=== PATIENT | male | born 1960 | race Caucasian/White ===

== ENCOUNTER → 2020-12-28 | Outpatient (CLI) | payer MEDICARE | END | disposition home or self-care (01) | LOC: CFH 10:20 | PROVIDERS: ATTEND Pathology Hematology | DX: C46.0 Kaposi's sarcoma of skin (principal); R22.42 Localized swelling, mass and lump, left lower limb ==

== ENCOUNTER 2021-04-11 15:33 | Emergency (ER) | payer MEDICARE ==
[~2021-04-11] VITALS: Ht 198.1 cm; Wt 130.0 kg
--- NOTE | 2021-04-11 15:49 | NUR ---
ASSUMED CARE OF PATIENT. PATIENT BIB [facility] FOR A WITNESSED SEIZURE. VS STABLE. PT HAS BEEN SEEN BY DR CANTU. [employer] CONSULTANT ON. NSR NOTED. PT IS A&OX4. CALL LIGHT IN PLACE. SEIZURE PADS ON BED. WILL CONTINUE TO MONITOR.
[2021-04-11] MEDS ORDERED: SODIUM CHLORIDE FLUSH 10ML SYR IVF ONE (16:00)
--- NOTE | 2021-04-11 16:02 | NUR ---
PT WENT TO CT
[2021-04-11 16:09] LABS: BASOPHILS % (AUTO) 0 % (0-1); EOSINOPHILS % (AUTO) 3 % (1-7); LYMPHOCYTES % (AUTO) 31 % (22-44); MEAN CORPUSCULAR HEMOGLOBIN 33.2 pg (27.5-34.5); MEAN CORPUSCULAR HGB CONC 34.5 g/dL (33.2-36.2); MEAN PLATELET VOLUME 6.9 fL (7.4-10.4); MONOCYTES % (AUTO) 9 % (2-9); NEUTROPHILS % (AUTO) 58 % (42-75); PLATELET COUNT 131 x10^3/uL (130-400); RED BLOOD COUNT 4.17 x10^6/uL (4.38-5.82); RED CELL DISTRIBUTION WIDTH 15.7 % (9.4-14.8)
[2021-04-11 16:12] LABS: MD NO
[2021-04-11 16:16] LABS: ALBUMIN 3.7 g/dL (3.4-5.0); ANION GAP 9 mmol/L (5-15); CALCIUM 8.5 mg/dL (8.5-10.1); CHLORIDE 107 mmol/L (98-107)
[2021-04-11 16:23] LABS: ALANINE AMINOTRANSFERASE 83 U/L (12-78); ALKALINE PHOSPHATASE 101 U/L (45-117); BILIRUBIN,TOTAL 0.9 mg/dL (0.2-1.0); CREATININE 1.04 mg/dL (0.7-1.3); TOTAL PROTEIN 6.6 g/dL (6.4-8.2); TROPONIN I < 0.015 ng/mL (0.000-0.045)
[2021-04-11] MEDS ORDERED: HYDROmorphone 1 MG/ML, 1ML INJ IV ONE (16:30)
[2021-04-11] MEDS ORDERED: HYDROmorphone 1 MG/ML, 1ML INJ ONE (16:35)
--- NOTE | 2021-04-11 16:49 | NUR ---
PT REPORTS [address] CANTU AWARE. PT MEDICATED. PT REQUESTING ICE FOR BACK. ICE PACKS GIVEN. VS STABLE. CALL LIGHT IN PLACE. WILL CONTINUE TO MONITOR.
[2021-04-11] MEDS ORDERED: PLEASE ENTER ALLERGIES MC SCH (17:00)
--- NOTE | 2021-04-11 17:17 | NUR ---
PT RESTING IN ROOM. VS STABLE. NO ACUTE DISTRESS NOTED. CALL LIGHT IN PLACE. WILL CONTINUE TO MONITOR.
--- NOTE | 2021-04-11 17:38 | NUR ---
PT REPORTS HE CAN'T GIVE A UA AT THIS TIME
--- NOTE | 2021-04-11 18:15 | NUR ---
DR CANTU IN ROOM UPDATING PATIENT
[2021-04-11 19:47] VITALS: BP 151/77
--- NOTE | 2021-04-11 19:48 | NUR ---
PT HAS A RIDE HOME FROM FAMILY. PT VERBALIZES DISCHARGE INSTRUCTIONS. PT REPORTS HE HAS HIS OWN PAIN MEDS AT HOME. PT ALSO REPORTS HE USES OXYGEN PRN WHEN HE NEEDS IT. VS STABLE. PT WAS 94% RA. PT REPORTS THIS HIS IS BASELINE. PT IS A&O X4. NO ACUTE DISTRESS. PT TO FOLLOW UP WITH PRIMARY CARE DOCTOR AND NEUROLOGY. PT DISCHARGED PER DR CANTU.
== END 2021-04-11 19:51 | disposition home or self-care (01) ==
LOC: ED 17:15
DX: S39.012A Strain of muscle, fascia and tendon of lower back, initial encounter (principal); R55 Syncope and collapse; R94.31 Abnormal electrocardiogram [ECG] [EKG]; R51.9 Headache, unspecified; R06.89 Other abnormalities of breathing; X58.XXXA Exposure to other specified factors, initial encounter; Y93.89 Activity, other specified; Y92.89 Other specified places as the place of occurrence of the external cause; Y99.8 Other external cause status
CPT/HCPCS: 36415; 70450; 71045; 80053; 80320; 84484; 85025; 93005; 96374; 99285; J1170; G0480